=== PATIENT | female | born 1995 | race African-American/Black ===

== ENCOUNTER 2018-07-17 12:07 | Emergency (ER) | payer MEDICAID ==
[2018-07-17 17:59] LABS: CLARITY URINE CLOUDY (CLEAR); COLOR URINE AMBER (YELLOW); KETONES URINE TRACE (NEGATIVE); LEUKOCYTE ESTERASE URINE 2+ (NEGATIVE); NITRITE URINE NEGATIVE (NEGATIVE); OCCULT BLOOD URINE NEGATIVE (NEGATIVE); PH URINE 6.5 (4.5-8.0); PROTEIN URINE 1+ (NEGATIVE); SPECIFIC GRAVITY URINE 1.029 (1.005-1.030)
[2018-07-17 18:15] VITALS: BP 120/72
== END 2018-07-17 18:15 | disposition home or self-care (01) ==
LOC: ER 12:37
DX: O23.41 Unspecified infection of urinary tract in pregnancy, first trimester (principal); O26.891 Other specified pregnancy related conditions, first trimester; M94.0 Chondrocostal junction syndrome [Tietze]; Z3A.00 Weeks of gestation of pregnancy not specified
CPT/HCPCS: 81025; 99283

== ENCOUNTER 2020-12-19 13:37 | Inpatient (IN) | payer MEDICAID ==
[~2020-12-19] VITALS: Ht 160 cm; Wt 63.5 kg
[2020-12-19] MEDS ORDERED: PNV1TABL76 MT (14:07)
[2020-12-19] MEDS ORDERED: ROPIVACAINE HCL/PF EPIDURAL 200 ML EPI SCH (14:15)
[2020-12-19] MEDS ORDERED: CARBOPROST TROMETHAMINE 250 MCG/ML AMPUL IM PRN (14:30)
[2020-12-19] MEDS ORDERED: NALOXONE HCL 0.4 MG/ML 1ML VIAL IM PRN (14:30)
[2020-12-19] MEDS ORDERED: METHYLERGONOVINE MALEATE 0.2 MG/ML IM PRN (14:30)
[2020-12-19] MEDS ORDERED: DEXT 5%/LR + PITOCIN 20UNITS/L 1,000 ML IV SCH ×2 (14:30→16:15)
[2020-12-19] MEDS ORDERED: LIDOCAINE HCL 1% 20ML VIAL (Pyxis) INJ INFIL SCH (14:30)
[2020-12-19] MEDS ORDERED: BUTORPHANOL TARTRATE 2 MG/ML VIAL IV PRN (14:30)
[2020-12-19] MEDS ORDERED: LACTATED RINGERS 1,000 ML IV SCH (14:53)
[2020-12-19] MEDS ORDERED: PENICILLIN G POTASSIUM 5 MMU in DEXT 5% WATER 100 ML IV NR (15:00)
[2020-12-19 15:21] LABS: BASOPHILS % 0.5 % (0.0-2.0); EOSINOPHILS % 0.7 % (0.0-5.0); HEMATOCRIT. 24.5 % (36.0-48.0); HEMOGLOBIN. 7.9 g/dL (12.0-16.0); LYMPHOCYTES % 20.9 % (20.0-50.0); MEAN CORPUSCULAR HEMOGLOBIN 22.3 pg (28.0-32.0); MEAN PLATELET VOLUME 8.6 fl (7.4-10.4); MONOCYTES % 9.3 % (2.0-8.0); NEUTROPHILS % 68.6 % (40.0-76.0); PLATELET 198 x1000/uL (130-400); RED BLOOD CELL COUNT 3.56 mill/uL (4.2-5.4); RED CELL DISTRIBUTION WIDTH 18.2 % (11.6-14.6)
[2020-12-19 15:22] LABS: CLARITY URINE CLOUDY (CLEAR); COLOR URINE DK YELLOW (YELLOW); KETONES URINE NEGATIVE (NEGATIVE); LEUKOCYTE ESTERASE URINE 3+ (NEGATIVE); NITRITE URINE NEGATIVE (NEGATIVE); OCCULT BLOOD URINE NEGATIVE (NEGATIVE); PROTEIN URINE TRACE (NEGATIVE); SPECIFIC GRAVITY URINE 1.024 (1.005-1.030)
[2020-12-19 15:23] LABS: PARTIAL THROMBOPLASTIN TIME 27.8 sec (23.4-31.0); PROTHROMBIN TIME 10.4 sec (9.6-11.0)
[2020-12-19 15:34] LABS: *AMPHETAMINES SCREEN URINE NEGATIVE (NEGATIVE)
[2020-12-19 15:35] LABS: *BARBITURATES SCREEN URINE NEGATIVE (NEGATIVE); PHENCYCLIDINE URINE SCREEN NEGATIVE (NEGATIVE)
[2020-12-19 15:37] LABS: CANNABINOID URINE SCREEN NEGATIVE (NEGATIVE); METHADONE URINE SCREEN NEGATIVE (NEGATIVE)
[2020-12-19 15:38] LABS: *COCAINE SCREEN URINE NEGATIVE (NEGATIVE)
[2020-12-19 15:41] LABS: *BENZODIAZEPINES SCREEN URINE NEGATIVE (NEGATIVE); OPIATES URINE SCREEN NEGATIVE (NEGATIVE)
[2020-12-19 16:09] LABS: HEPATITIS B SURFACE ANTIGEN NEGATIVE
[2020-12-19] MEDS ORDERED: BISACODYL 10MG SUPP PR PRN (16:15)
[2020-12-19] MEDS ORDERED: LANOLIN OINT 7GM TUBE TOP PRN (16:15)
[2020-12-19] MEDS ORDERED: HEMORRHOIDAL SUPP PR PRN (16:15)
[2020-12-19] MEDS ORDERED: DIPHENHYDRAMINE 25MG CAPSULE PO PRN (16:15)
[2020-12-19] MEDS ORDERED: BENZOCAINE/LANOLIN/ALOE VERA SPRAY TOP PRN (16:15)
[2020-12-19] MEDS ORDERED: GLYCERIN/WITCH HAZEL LEAF MEDICATED PAD TOP PRN (16:15)
[2020-12-19] MEDS ORDERED: IBUPROFEN 400MG TABLET PO PRN (16:15)
[2020-12-19] MEDS ORDERED: AZITHROMYCIN 500 MG TABLET PO NR (16:15)
[2020-12-19 16:24] LABS: PLATELET ESTIMATE NORMAL
[2020-12-19 17:30] VITALS: BP 96/54
[2020-12-19] MEDS: IBUPROFEN 800MG TABLET PO PRN (18:26)
[2020-12-19] MEDS ORDERED: PENICILLIN G POTASSIUM 2.5 MMU in DEXTROSE 5% WATER 50 ML IV SCH (19:00)
[2020-12-19 20:00] VITALS: BP 113/55
[2020-12-19] MEDS: DOCUSATE SODIUM 100MG CAPSULE PO SCH (21:41)
[2020-12-19] MEDS: SIMETHICONE 80MG TABLET CHEW PO SCH (21:42)
[2020-12-19] MEDS: ACETAMINOPHEN WITH CODEINE 300/30MG TABLET PO PRN (21:43)
[2020-12-20] VITALS: BP 107/54
[2020-12-20 04:00] VITALS: BP 104/56
[2020-12-20 05:34] LABS: BASOPHILS % 0.9 % (0.0-2.0); EOSINOPHILS % 0.6 % (0.0-5.0); HEMATOCRIT. 23.9 % (36.0-48.0); HEMOGLOBIN. 7.5 g/dL (12.0-16.0); LYMPHOCYTES % 15.5 % (20.0-50.0); MEAN CORPUSCULAR HEMOGLOBIN 21.6 pg (28.0-32.0); MEAN CORPUSCULAR VOLUME 68.6 fL (81.0-99.0); MEAN PLATELET VOLUME 8.8 fl (7.4-10.4); MONOCYTES % 8.2 % (2.0-8.0); NEUTROPHILS % 74.8 % (40.0-76.0); PLATELET 216 x1000/uL (130-400); RED BLOOD CELL COUNT 3.49 mill/uL (4.2-5.4); RED CELL DISTRIBUTION WIDTH 17.9 % (11.6-14.6)
[2020-12-20] MEDS: IBUPROFEN 800MG TABLET PO PRN ×2 (06:16→12:47)
[2020-12-20 07:40] VITALS: BP 94/52
[2020-12-20] MEDS: SIMETHICONE 80MG TABLET CHEW PO SCH ×4 (08:13→21:01)
[2020-12-20] MEDS: ACETAMINOPHEN WITH CODEINE 300/30MG TABLET PO PRN (08:13)
[2020-12-20] MEDS: FERROUS SULFATE 325MG TABLET PO SCH ×3 (08:13→17:29)
[2020-12-20] MEDS: PRENATAL VIT/FE FUMARATE/FA TABLET PO SCH (08:13)
[2020-12-20] MEDS ORDERED: MEDROXYPROGESTERONE ACETATE 150MG/ML VIAL IM SCH (11:00)
[2020-12-20 15:06] VITALS: BP 95/51
[2020-12-20 19:30] VITALS: BP 92/45
[2020-12-20] MEDS: DOCUSATE SODIUM 100MG CAPSULE PO SCH (21:01)
[2020-12-21 04:00] VITALS: BP 112/65
[2020-12-21 07:40] VITALS: BP 98/51
[2020-12-21] MEDS: FERROUS SULFATE 325MG TABLET PO SCH (08:04)
[2020-12-21] MEDS: PRENATAL VIT/FE FUMARATE/FA TABLET PO SCH (08:04)
[2020-12-21] MEDS: IBUPROFEN 800MG TABLET PO PRN (08:04)
[2020-12-21] MEDS: SIMETHICONE 80MG TABLET CHEW PO SCH (08:05)
== END 2020-12-21 18:56 | disposition home or self-care (01) | DRG 560 ==
LOC: 8 EST LDRP 13:37 → OBSVTOIN 15:51 → 8EST 19:33
PROVIDERS: ADMIT Specialist; ATTEND Specialist
PROC: 10E0XZZ Delivery of Products of Conception, External Approach (ICD-10-PCS; principal; 2020-12-19)
PROC: 0KQM0ZZ Repair Perineum Muscle, Open Approach (ICD-10-PCS; 2020-12-19)
DX: O77.0 Labor and delivery complicated by meconium in amniotic fluid (principal); O98.82 Other maternal infectious and parasitic diseases complicating childbirth; O99.824 Streptococcus B carrier state complicating childbirth; A74.9 Chlamydial infection, unspecified; O99.02 Anemia complicating childbirth; D64.9 Anemia, unspecified; O70.1 Second degree perineal laceration during delivery; Z37.0 Single live birth; Z3A.39 39 weeks gestation of pregnancy
CPT/HCPCS: 36415; 80305; 81003; 85025; 86592; 86703; 86762; 86850; 86900; 87340; G0378; J0595; J1050; J2540; J2590; J2795; J3490; J7060

== ENCOUNTER 2022-01-23 20:42 | Inpatient (IN) | payer MEDICAID ==
[~2022-01-23] VITALS: Ht 160 cm; Wt 72.6 kg
[2022-01-23] MEDS ORDERED: METHYLERGONOVINE MALEATE 0.2 MG/ML IM PRN (21:15)
[2022-01-23] MEDS ORDERED: AMPICILLIN 2GM in NS 100ML 100 ML IV SCH (21:15)
[2022-01-23] MEDS ORDERED: LACTATED RINGERS 1,000 ML IV SCH ×2 (21:15→22:45)
[2022-01-23] MEDS ORDERED: LIDOCAINE HCL 1% 20ML VIAL (Pyxis) INJ INFIL SCH (21:15)
[2022-01-23] MEDS ORDERED: CARBOPROST TROMETHAMINE 250 MCG/ML AMPUL IM PRN (21:15)
[2022-01-23] MEDS ORDERED: MISOPROSTOL 100MCG TABLET VG SCH (21:15)
[2022-01-23] MEDS ORDERED: RHO(D) IMMUNE GLOBULIN 300 MCG/SYR IM NR (21:15)
[2022-01-23] MEDS: OXYTOCIN 30 UNITS/500ML NS PMX 500 ML IV SCH (21:56)
[2022-01-23] MEDS ORDERED: BENZOCAINE/LANOLIN/ALOE VERA SPRAY TOP PRN (22:30)
[2022-01-23] MEDS ORDERED: IBUPROFEN 400MG TABLET PO PRN (22:30)
[2022-01-23] MEDS: IBUPROFEN 800MG TABLET PO PRN (23:13)
[2022-01-23] MEDS ORDERED: PRENATAL VITAMINS (23:20)
[2022-01-23] MEDS ORDERED: FERROUS SULFATE (23:20)
[2022-01-23 23:31] LABS: CLARITY URINE TURBID (CLEAR); COLOR URINE YELLOW (YELLOW); KETONES URINE NEGATIVE (NEGATIVE); LEUKOCYTE ESTERASE URINE NEGATIVE (NEGATIVE); NITRITE URINE NEGATIVE (NEGATIVE); OCCULT BLOOD URINE 1+ (NEGATIVE); PROTEIN URINE TRACE (NEGATIVE); SPECIFIC GRAVITY URINE 1.024 (1.005-1.030)
[2022-01-23 23:31] LABS: BASOPHILS % 0.5 % (0.0-2.0); EOSINOPHILS % 0.1 % (0.0-5.0); HEMATOCRIT. 29.1 % (36.0-48.0); HEMOGLOBIN. 8.9 g/dL (12.0-16.0); LYMPHOCYTES % 10.4 % (20.0-50.0); MEAN CORPUSCULAR HEMOGLOBIN 21.2 pg (28.0-32.0); MEAN CORPUSCULAR VOLUME 69.1 fL (81.0-99.0); MEAN PLATELET VOLUME 8.7 fl (7.4-10.4); MONOCYTES % 6.9 % (2.0-8.0); NEUTROPHILS % 82.1 % (40.0-76.0); PLATELET 343 x1000/uL (130-400); RED BLOOD CELL COUNT 4.21 mill/uL (4.2-5.4)
[2022-01-23 23:41] LABS: PARTIAL THROMBOPLASTIN TIME 24.5 sec (23.4-31.0); PROTHROMBIN TIME 10.3 sec (9.6-11.0)
[2022-01-23 23:45] LABS: CHLORIDE 103 mEq/L (98-107)
[2022-01-23 23:59] LABS: *AMPHETAMINES SCREEN URINE NEGATIVE (NEGATIVE); *BARBITURATES SCREEN URINE NEGATIVE (NEGATIVE); *BENZODIAZEPINES SCREEN URINE NEGATIVE (NEGATIVE); *COCAINE SCREEN URINE NEGATIVE (NEGATIVE); CANNABINOID URINE SCREEN NEGATIVE (NEGATIVE); METHADONE URINE SCREEN NEGATIVE (NEGATIVE); OPIATES URINE SCREEN NEGATIVE (NEGATIVE); PHENCYCLIDINE URINE SCREEN NEGATIVE (NEGATIVE)
[2022-01-24 00:26] LABS: HEPATITIS B SURFACE ANTIGEN NEGATIVE
[2022-01-24 01:00] VITALS: BP 115/56
[2022-01-24 01:30] VITALS: BP 110/62
[2022-01-24 02:39] LABS: PLATELET ESTIMATE NORMAL
[2022-01-24] MEDS: OXYTOCIN 30 UNITS/500ML NS PMX 500 ML IV SCH (02:51)
[2022-01-24 03:45] VITALS: BP 109/60
[2022-01-24] MEDS: FERROUS SULFATE 325MG TABLET PO SCH (07:51)
[2022-01-24] MEDS: IBUPROFEN 800MG TABLET PO PRN ×3 (07:52→19:49)
[2022-01-24 08:00] VITALS: BP 108/59
[2022-01-24] MEDS ORDERED: PRENATAL VIT/FE FUMARATE/FA TABLET PO SCH (09:00)
[2022-01-24 10:13] LABS: BASOPHILS % 0.2 % (0.0-2.0); EOSINOPHILS % 0.4 % (0.0-5.0); HEMATOCRIT. 22.3 % (36.0-48.0); LYMPHOCYTES % 13.7 % (20.0-50.0); MEAN CORPUSCULAR VOLUME 68.7 fL (81.0-99.0); MEAN PLATELET VOLUME 7.9 fl (7.4-10.4); MONOCYTES % 11.9 % (2.0-8.0); NEUTROPHILS % 73.8 % (40.0-76.0); PLATELET 303 x1000/uL (130-400); RED BLOOD CELL COUNT 3.24 mill/uL (4.2-5.4); RED CELL DISTRIBUTION WIDTH 21.4 % (11.6-14.6)
[2022-01-24 10:21] LABS: HEMOGLOBIN. 6.8 g/dL (12.0-16.0)
[2022-01-24 16:00] VITALS: BP 113/60
[2022-01-24 20:35] VITALS: BP 96/52
[2022-01-25 01:13] VITALS: BP 96/51
[2022-01-25] MEDS ORDERED: FERR-63 PO (04:44)
[2022-01-25] MEDS: FERROUS SULFATE 325MG TABLET PO SCH ×2 (07:30→12:30)
[2022-01-25 08:22] VITALS: BP 105/56
[2022-01-25] MEDS: IBUPROFEN 800MG TABLET PO PRN (12:09)
== END 2022-01-25 14:30 | disposition home or self-care (01) | DRG 560 ==
LOC: OBSVTOIN 20:42 → 8 EST LDRP 20:42 → 8EST 01-24 01:39
PROVIDERS: ADMIT Obstetrics & Gynecology; ATTEND Obstetrics & Gynecology
PROC: 10E0XZZ Delivery of Products of Conception, External Approach (ICD-10-PCS; principal; 2022-01-23)
PROC: 0KQM0ZZ Repair Perineum Muscle, Open Approach (ICD-10-PCS; 2022-01-23)
DX: O48.0 Post-term pregnancy (principal); Z37.0 Single live birth; O70.1 Second degree perineal laceration during delivery; O99.02 Anemia complicating childbirth; Z3A.40 40 weeks gestation of pregnancy; Z20.822 Contact with and (suspected) exposure to COVID-19
CPT/HCPCS: 36415; 80053; 80305; 81003; 85025; 86592; 86703; 86762; 86850; 86900; 87340; 87426; 99281; G0378; J0290; J2210; J3490; J2590